=== PATIENT | male | born 1975 | race Caucasian/White ===

== ENCOUNTER 2016-10-15 12:38 | Emergency (ER) | payer OTHER ==
[2016-10-15 14:13] LABS: HEMOGLOBIN 16.2 gm/dl (14.0-17.5); RED BLOOD COUNT 5.07 M/UL (4.20-5.50)
[2016-10-15 14:38] LABS: BUN/CREATININE RATIO 26 (0-10)
== END 2016-10-15 16:10 | disposition home or self-care (01) ==
LOC: ER1 12:38
PROVIDERS: Family Medicine
DX: R00.2 Palpitations (principal); F17.200 Nicotine dependence, unspecified, uncomplicated; R07.9 Chest pain, unspecified
CPT/HCPCS: 36415; 71010; 80053; 80307; 81001; 82550; 82553; 83874; 84484; 85025; 93005; 99285

== ENCOUNTER 2021-06-11 11:47 | Emergency (ER) | payer OTHER ==
[~2021-06-11 11:47] MED LIST: LODINE CAP 300300 MG PO; ZOFRAN ODT 4 MG4 MG SL
[2021-06-11] MEDS ORDERED: CEPHALEXIN500 M1 PO (13:19)
[2021-06-11] MEDS ORDERED: NAPROXEN500 MG PO (13:19)
[2021-06-11] MEDS ORDERED: HYDROCODONE-AC1 EACH PO (13:20)
== END 2021-06-11 13:25 | disposition home or self-care (01) ==
LOC: ER1 11:47
DX: S62.633A Displaced fracture of distal phalanx of left middle finger, initial encounter for closed fracture (principal); S61.215A Laceration without foreign body of left ring finger without damage to nail, initial encounter; X58.XXXA Exposure to other specified factors, initial encounter; F17.210 Nicotine dependence, cigarettes, uncomplicated
CPT/HCPCS: 73130; 96374; 96375; 99283; J2270; J2405